=== PATIENT | female | born 1970 | race Caucasian/White ===

== ENCOUNTER 2021-01-03 10:24 | Emergency (ER) | payer MEDICARE, OTHER ==
[2021-01-03 12:15] LABS: HEMOGLOBIN 15.4 gm/dl (12.3-15.3); RED BLOOD COUNT 5.22 M/UL (4.00-5.10)
[2021-01-03 12:38] LABS: BUN/CREATININE RATIO 20 (0-10)
[2021-02-01] MEDS ORDERED: ESTRADIOL1 EAC4 TD (10:54)
[2021-02-01] MEDS ORDERED: ONDANSETRON ODT4 MG PO (10:54)
[2021-02-01] MEDS ORDERED: ATORVASTATIN CA10 MG PO (10:55)
[2021-02-01] MEDS ORDERED: BENAZEPRIL HCL20 MG PO (10:56)
[2021-02-01] MEDS ORDERED: ACYCLOVIR400 MG PO (10:56)
[2021-02-01] MEDS ORDERED: FLONASE 0.05% N16 GM (10:57)
[2021-02-01] MEDS ORDERED: CARISOPRODOL350 MG PO (10:57)
[2021-02-01] MEDS ORDERED: GABAPENTIN800 MG PO (10:58)
[2021-02-01] MEDS ORDERED: IBUPROFEN800 MG PO (10:59)
[2021-02-01] MEDS ORDERED: HYDROCODON-ACE1 EAC6 PO (10:59)
[2021-02-01] MEDS ORDERED: PROTONIX 40 MG40 M1 PO (11:00)
[2021-02-01] MEDS ORDERED: MONTELUKAST SOD10 MG PO (11:00)
[2021-02-01] MEDS ORDERED: [UNRECOGNIZED DRUG - OTHER] ×2 (11:01→11:03)
[2021-02-01] MEDS ORDERED: BUPROPION HCL200 MG PO (11:04)
[2021-02-01] MEDS ORDERED: METOPROLOL SUCC50 MG PO (11:04)
[2021-02-01] MEDS ORDERED: DOTTI1 EAC1 TD (11:05)
[2021-02-01] MEDS ORDERED: GLUCOSAMINE HC500 MG PO (11:06)
[2021-02-01] MEDS ORDERED: ALBUTEROL2.5 MG/3 M INH (11:08)
[2021-02-01] MEDS ORDERED: ALLEGRA ALLERG180 MG PO (11:08)
[2021-02-01] MEDS ORDERED: ECOTRIN81 MG PO (11:08)
[2021-02-01] MEDS ORDERED: MUCINEX600 MG PO (11:09)
[2021-02-01] MEDS ORDERED: PRILOSEC OTC20 MG PO (11:10)
[2021-02-01] MEDS ORDERED: PROGESTERONE50 MG/ML IM (11:10)
[2021-02-01] MEDS ORDERED: VENTOLIN HFA 66.7 GM INH (11:11)
[2021-02-01] MEDS ORDERED: SYMBICORT 16010.2 GM INH (11:11)
[2021-02-01] MEDS ORDERED: VITAMIN B-121000 MCG PO (11:12)
== END 2021-01-03 16:25 | disposition home or self-care (01) ==
LOC: ER1 10:24
PROVIDERS: Physician Assistant
DX: R07.89 Other chest pain (principal); I35.0 Nonrheumatic aortic (valve) stenosis; I11.9 Hypertensive heart disease without heart failure; F17.210 Nicotine dependence, cigarettes, uncomplicated; Z79.01 Long term (current) use of anticoagulants; Z79.899 Other long term (current) drug therapy; Z90.710 Acquired absence of both cervix and uterus
CPT/HCPCS: 71045; 80053; 82550; 82553; 83874; 84484; 85025; 93005; 99285

== ENCOUNTER → 2021-01-10 | Outpatient (CLI) | payer MEDICARE, OTHER ==
[~2021-01-10] MED LIST: ACYCLOVIR400 MG PO; ALBUTEROL2.5 MG/3 M INH; ALLEGRA ALLERG180 MG PO; ATORVASTATIN CA10 MG PO; BENAZEPRIL HCL20 MG PO; BUPROPION HCL200 MG PO; CARISOPRODOL350 MG PO; DOTTI1 EAC1 TD; ECOTRIN81 MG PO; ESTRADIOL1 EAC4 TD; FLONASE 0.05% N16 GM; GABAPENTIN800 MG PO; GLUCOSAMINE HC500 MG PO; HYDROCODON-ACE1 EAC6 PO; IBUPROFEN800 MG PO; METOPROLOL SUCC50 MG PO; MONTELUKAST SOD10 MG PO; MUCINEX600 MG PO; ONDANSETRON ODT4 MG PO; PRILOSEC OTC20 MG PO; PROGESTERONE50 MG/ML IM; PROTONIX 40 MG40 M1 PO; SYMBICORT 16010.2 GM INH; VENTOLIN HFA 66.7 GM INH; VITAMIN B-121000 MCG PO; [UNRECOGNIZED DRUG - OTHER]
== END ==
LOC: ECHO 12:00
DX: I35.0 Nonrheumatic aortic (valve) stenosis (principal); I51.9 Heart disease, unspecified; I51.7 Cardiomegaly
CPT/HCPCS: ECHO; 93306

== ENCOUNTER → 2021-01-20 | Outpatient (CLI) | payer MEDICARE, OTHER ==
[2021-01-20 18:22] LABS: HEMOGLOBIN 14.3 gm/dl (12.3-15.3); RED BLOOD COUNT 4.81 M/UL (4.00-5.10); WHITE BLOOD COUNT 8.1 K/UL (4.5-11.0)
== END ==
LOC: LAB 17:32
PROVIDERS: Internal Medicine Interventional Cardiology
DX: I20.9 Angina pectoris, unspecified (principal); R07.89 Other chest pain; I10 Essential (primary) hypertension; R06.02 Shortness of breath; I35.0 Nonrheumatic aortic (valve) stenosis
CPT/HCPCS: 80048; 85025; 85610; 85730; 93005

== ENCOUNTER → 2021-02-01 | Outpatient (CLI) | payer MEDICARE, OTHER | LOC: EDSTATUS 08:00 → CATH 08:00 | DX: I08.3 Combined rheumatic disorders of mitral, aortic and tricuspid valves (principal); F17.200 Nicotine dependence, unspecified, uncomplicated; R94.31 Abnormal electrocardiogram [ECG] [EKG]; I11.9 Hypertensive heart disease without heart failure | CPT/HCPCS: 93005; 93312; 93320; J1200; J2250; J2310; J3010 ==

== ENCOUNTER → 2021-02-10 | Outpatient (CLI) | payer MEDICARE, OTHER | LOC: HEART 5 08:00 | DX: I20.9 Angina pectoris, unspecified (principal); R07.9 Chest pain, unspecified; R06.02 Shortness of breath | CPT/HCPCS: 78452; A9502; J2785 ==

== ENCOUNTER → 2022-02-13 | Outpatient (CLI) | payer MEDICARE, OTHER | LOC: EXRD 09:36 | DX: Z00.00 Encounter for general adult medical examination without abnormal findings (principal) | CPT/HCPCS: 71046 ==